=== PATIENT | male | born 1980 | race Caucasian/White ===

== ENCOUNTER 2017-11-24 23:38 | Emergency (ER) | payer OTHER ==
[~2017-11-24] VITALS: Ht 175.3 cm; Wt 74.8 kg
--- NOTE | 2017-11-25 00:25 | Emergency Room Report ---
History of Present Illness General Chief Complaint: Pain Source: Patient Present Illness HPI Patient presents with complaints of pain to the right foot He reports that 4 days ago he kicked the kickstand on his bike and after that noticed some redness and swelling Denies any fevers or chills denies any ankle pain multiple discomfort is localized to the dorsal foot Denies any neck pain or photophobia denies any abdominal pain pain is worse with ambulation Allergies: Coded Allergies: No Known Allergies (Unverified , 11/25/17) Patient History Past Medical History: see triage record Pertinent Family History: none Reviewed Nursing Documentation: PMH: Agreed; PSxH: Agreed Nursing Documentation-PMH Past Medical History: No Stated History Review of Systems All Other Systems: negative except mentioned in HPI Physical Exam Vital Signs Date Time Temp Pulse Resp B/P (MAP) Pulse Ox O2 Delivery O2 Flow Rate FiO2 11/24/17 23:56 98.1 114 16 136/72 99 Room Air 98.1 Sp02 EP Interpretation: reviewed, normal General Appearance: well appearing, no apparent distress Head: normocephalic, atraumatic Eyes: bilateral eye PERRL, bilateral eye EOMI ENT: normal pharynx Neck: supple Respiratory: lungs clear Cardiovascular #1: regular rate, rhythm Gastrointestinal: non tender Musculoskeletal: swelling - Swelling and erythema involving the dorsal right foot there is also discharge from the web areas of second and third digit, the area does not appear consistent with a simple traumatic contusion, I do not see any obvious open wounds however, Neurologic: alert, oriented x3 Skin: other - As above Lymphatic: no adenopathy Medical Decision Making Diagnostic Impression: Primary Impression: Cellulitis Additional Impression: Contusion ER Course Given the history and findings the exam reveals concerning findings of likely infectious pathology given the reports of trauma x-ray was also obtained no obvious acute pathology is seen on the x-ray Patient provided with antibiotics And requires close podiatry outpatient follow-up , Other X-Ray Diagnostic Results Other X-Ray Diagnostic Results : X-Ray ordered: Right foot # of Views/Limited Vs Complete: 3 View Indication: Pain EP Interpretation: Yes Interpretation: no dislocation, no fractures, other - Mild soft tissue swelling Impression: No acute disease Electronically Signed by: Sai Perry DO Last Vital Signs Date Time Temp Pulse Resp B/P (MAP) Pulse Ox O2 Delivery O2 Flow Rate FiO2 11/24/17 23:56 98.1 114 16 136/72 99 Room Air 98.1 Status: improved Disposition: HOME, SELF-CARE Condition: Improved Scripts Ibuprofen* (MOTRIN*) 600 Mg Tablet 600 MG ORAL Q8H PRN for For Pain, #20 TAB 0 Refills Prov: Sai Perry DO 11/25/17 Trimethoprim/Sulfamethoxazole 160/800* (BACTRIM DS TABLET*) 1 Each Tablet 1 TAB ORAL Q12H, #20 TAB 0 Refills Prov: Sai Perry DO 11/25/17 Cephalexin* (KEFLEX*) 500 Mg Capsule 500 MG ORAL EVERY 6 HOURS for 10 Days, CAP Prov: Sai Perry DO 11/25/17 Additional Instructions: Patient is provided with the discharge instructions notified to follow up with primary doctor in the next 2-3 days otherwise return to the er with any worsening symptoms. Please note that this report is being documented using DRAGON technology. This can lead to erroneous entry secondary to incorrect interpretation by the dictating instrument. Sai Perry DO Nov 25, 2017 00:25
[2017-11-25 00:30] VITALS: BP 110/60
[2017-11-25] MEDS ORDERED: Bactrim-DS 1 tab ORAL ONE (00:30)
[2017-11-25] MEDS ORDERED: Cephalexin 500mg cap ORAL ONE (00:30)
[2017-11-25] MEDS ORDERED: BACTRIM DS TAB1 EAC1 ORAL (00:53)
[2017-11-25] MEDS ORDERED: IBUPROFEN600 MG ORAL (00:53)
[2017-11-25] MEDS ORDERED: CEPHALEXIN500 MG ORAL (00:53)
[2017-11-25 01:35] VITALS: BP 106/60
[2017-11-25 02:07] VITALS: BP 106/60
--- NOTE | 2017-11-25 10:30 | Diagnostic Imaging Report ---
Indication: Foot Pain Comparison: None Findings: 3 views of the right foot were obtained. No acute fractures, malalignment, erosions or periostitis are identified. Mild soft tissue swelling noted. Impression: No acute findings.
== END 2017-11-25 01:45 | disposition home or self-care (01) ==
LOC: EMR 23:59
DX: S90.31XA Contusion of right foot, initial encounter (principal); W22.8XXA Striking against or struck by other objects, initial encounter; Y93.89 Activity, other specified; Y92.9 Unspecified place or not applicable; L03.115 Cellulitis of right lower limb
CPT/HCPCS: 99283